=== PATIENT | male | born 1940 | race Caucasian/White ===

== ENCOUNTER → 2022-04-27 08:58 | Outpatient (CLI) | payer MEDICARE, SELFPAY ==
--- NOTE | ~2022-04-27 | MR_ITS ---
EXAMINATION: MR knee RT wo con DATE: 04/27/2022 09:52 INDICATION: Right knee pain TECHNIQUE: Magnetic resonance imaging (MRI) of the right knee was performed without intravenous contr ast. Sequences included coronal PD-weighted FSE, coronal PD-weighted FS FSE, sagittal T2-weighted FS E, sagittal PD-weighted FS FSE and axial PD weighted fat saturated FSE. COMPARISON: None. FINDINGS: Medial compartment: Tear of indeterminate morphology, likely complex with subtle increased signal contacting both the sup erior and inferior articular surface along the inner third of the posterior horn of the medial menisc us and irregular contour along the inner free edge. Partial-thickness chondral ulceration and fissuri ng at the anterior aspect of the medial tibial plateau with prominent underlying subarticular cystlik e and edema-like marrow signal changes. There is partial thickness cartilage loss with some subtle ch ondral surface irregularity at the anterior to central weightbearing medial femoral condyle. Lateral compartment: Lateral meniscus is normal. Small region of chondral fissuring likely involving up to 50% of the cart ilage thickness but without degenerative subchondral changes at the central weightbearing lateral fem oral condyle. Patellofemoral compartment: Partial-thickness chondral ulceration with deep fissuring and underlying mild subarticular cystlike a nd edema-like marrow signal changes at the medial patellar facet and apical ridge. Cartilage at the l ateral patellar facet is normal. Deep chondral ulceration with minimal underlying cortical irregulari ty at the caudal aspect of the trochlear groove and immediately adjacent inferolateral aspect of the medial trochlea. Ligaments and tendons: Anterior and posterior cruciate ligaments are normal. The medial collateral ligament and fibular lou ateral ligament complex are normal. The extensor mechanism is normal. The visualized medial and later al hamstring tendons as well as the iliotibial band are normal. Fluid: Physiologic amount of fluid in the joint space. No loose osteochondral bodies identified. Osseous/other: Bone alignment is normal. No fracture or pathologic marrow replacing process. IMPRESSION: 1. Likely complex tear involving the free edge and inner third of the posterior horn of the medial me niscus. 2. 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 Reviewed, dictated and finalized at location A. IMPRESSION: 1. Likely complex tear involving the free edge and inner third of the posterior horn of the medial meniscus. 2. 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
== END ==
PROVIDERS: PCP Internal Medicine; Visit Provider Nurse Practitioner Family
DX: M17.11 Unilateral primary osteoarthritis, right knee (principal); S83.241A Other tear of medial meniscus, current injury, right knee, initial encounter; X58.XXXA Exposure to other specified factors, initial encounter
CPT/HCPCS: 73721

== ENCOUNTER 2022-07-01 01:36 | Day surgery (SDC) | payer MEDICARE, SELFPAY ==
[2022-05-31 14:14] VITALS: BMI 27.4
[2022-06-16 13:39] VITALS: BMI 27.4
[2022-07-01 08:46] VITALS: BP 175/77; PULSE 57; RESP 20; TEMP 36.1; O2SAT 98; BMI 26.7
--- NOTE | 2022-07-01 09:00 | PM.IMHP ---
H&P: HPI History of Present Illness Date/Time: 07/01/22 09:00 Chief Complaint: neoplasia screening. Narrative: This is an 82-year-old white male patient presents for screening colonoscopy. Patient's current weight appetite bowel movements are normal. He denies abdominal pain. He has had no bleeding. Patient does have a prior history of adenomatous colon polyp. Family history is significant his mother had colon polyps. Patient presents today for neoplasia screening. Review of Systems Review of Systems: Review of systems noncontributory. [facility] Past Medical History Medical History (Updated 07/01/22 @ 09:02 by Harsha Rose MD) COVID-19 Family History Family History Mother Liver disease Grandparent Cardiac arrest Social History Social History Smoking status: Never smoker Second hand tobacco smoke exposure: Yes Alcohol intake: never Substance use: never Substance use type: does not use Living arrangements: with family Spiritual care concerns: No Meds Home Medications and Allergies Home Medications Medication Instructions Recorded Confirmed Type aspirin 325 mg tablet 325 mg PO DAILY 11/06/20 06/16/22 History esomeprazole magnesium 40 mg 40 mg PO DAILY 11/06/20 06/16/22 History capsule,delayed release (Nexium) fluticasone propionate 50 1 spray intranasal DAILY 11/06/20 06/16/22 History mcg/actuation nasal spray,suspension (Flonase Allergy Relief) metoprolol succinate 25 mg 12.5 mg PO DAILY 11/06/20 06/16/22 History tablet,extended release 24 hr multivitamin 1 tablet PO DAILY 11/06/20 06/16/22 History simvastatin 20 mg tablet (Zocor) 20 mg PO DAILY 11/06/20 06/16/22 History cholecalciferol (vitamin D3) 50 50 mcg PO DAILY 05/14/21 06/16/22 History mcg (2,000 unit) tablet mecobalamin (vitamin B12) 1,000 1,000 mcg PO DAILY 05/14/21 06/16/22 History mcg chewable tablet (B12 Active) saw palmetto 160 mg capsule 160 mg PO TID 05/14/21 06/16/22 History peg 3350-electrolytes 236 240 ml PO Q10M #4,000 mL 05/05/22 06/16/22 Rx gram-22.74 gram-6.74 gram-5.86 gram solution (Golytely) biotin 5,000 mcg sublingual tablet 5,000 mcg sublingual DAILY 05/31/22 06/16/22 History coQ10 (ubiquinol) 200 mg capsule 200 mg PO DAILY 05/31/22 06/16/22 History Allergies Allergy/AdvReac Type Severity Reaction Status Date / Time No Known Allergies Allergy Unknown Verified 07/01/22 08:44 Vital Signs Vital Signs - 24 hr 07/01/22 08:46 Temperature 96.9 F L Pulse Rate 57 L Respiratory Rate 20 Blood Pressure 175/77 H Pulse Oximetry 98 Oxygen Delivery Room Air Exam Narrative: Physical exam reveals patient to be alert. Vital signs stable. HEENT exam is unremarkable. Lungs are clear to auscultation and percussion. Heart is without murmur or extra sounds. Abdomen bowel sounds present soft nontender with no organomegaly. Digital external rectal exam is normal. Assessment and Plan Assessment and plan (1) History of colon polyps: Code(s): Z86.010 - Personal history of colonic polyps Status: Acute Assessment and Plan: Patient has a distant history of colon polyps. Family history is significant his mother had colon polyps. Plan is for surveillance colonoscopy now. Further recommendations may be given after endoscopy.
[2022-07-01] MEDS: LACTATED RINGERS 1,000 ML 150 ML IV CONT (09:01)
--- NOTE | 2022-07-01 09:41 | WPDANESEPPF ---
Anes - Initial Pre Proc Eval Procedure: Operation Date: 07/01/22 09:45 Proposed Procedures p Screening Colonoscopy - Harsha Rose MD Date/Time: 07/01/22 09:41 Surgeon: Harsha Rose MD Pre Op Diagnosis: hx colon polyps Patient Data Age: 82 Gender: M Height: 1.73 m Weight: 79.8 kg Last Vital Signs Temp 96.9 F L 07/01/22 08:46 Pulse 57 L 07/01/22 08:46 Resp 20 07/01/22 08:46 BP 175/77 H 07/01/22 08:46 Pulse Ox 98 07/01/22 08:46 O2 Del Method Room Air 07/01/22 08:46 Allergies Allergy/AdvReac Type Severity Reaction Status Date / Time No Known Allergies Allergy Unknown Verified 07/01/22 08:44 Home Medications Medication Instructions Recorded Confirmed Type aspirin 325 mg tablet 325 mg PO DAILY 11/06/20 06/16/22 History esomeprazole magnesium 40 mg 40 mg PO DAILY 11/06/20 06/16/22 History capsule,delayed release (Nexium) fluticasone propionate 50 1 spray intranasal DAILY 11/06/20 06/16/22 History mcg/actuation nasal spray,suspension (Flonase Allergy Relief) metoprolol succinate 25 mg 12.5 mg PO DAILY 11/06/20 06/16/22 History tablet,extended release 24 hr multivitamin 1 tablet PO DAILY 11/06/20 06/16/22 History simvastatin 20 mg tablet (Zocor) 20 mg PO DAILY 11/06/20 06/16/22 History cholecalciferol (vitamin D3) 50 50 mcg PO DAILY 05/14/21 06/16/22 History mcg (2,000 unit) tablet mecobalamin (vitamin B12) 1,000 1,000 mcg PO DAILY 05/14/21 06/16/22 History mcg chewable tablet (B12 Active) saw palmetto 160 mg capsule 160 mg PO TID 05/14/21 06/16/22 History peg 3350-electrolytes 236 240 ml PO Q10M #4,000 mL 05/05/22 06/16/22 Rx gram-22.74 gram-6.74 gram-5.86 gram solution (Golytely) biotin 5,000 mcg sublingual tablet 5,000 mcg sublingual DAILY 05/31/22 06/16/22 History coQ10 (ubiquinol) 200 mg capsule 200 mg PO DAILY 05/31/22 06/16/22 History Patient hx anesthesia problems: none Family hx anesthesia problems: none Results Review: All pre-operative results and documents have been reviewed as part of the pre-operative evaluation. [facility] Past Medical History Medical History (Updated 07/01/22 @ 09:02 by Harsha Rose MD) COVID-19 Family History Family History Mother Liver disease Grandparent Cardiac arrest Social History Social History Smoking status: Never smoker Second hand tobacco smoke exposure: Yes Alcohol intake: never Substance use: never Substance use type: does not use Living arrangements: with family Spiritual care concerns: No Anes - Eval Final PreProcedure Day of Procedure 07/01/22 09:41 Patient weight: normal Heart: regular rate and rhythm Lungs: clear to auscultation Airway: Mallampati scale class II Neurological: alert and oriented Last oral intake: >/= 8 hours ASA classification: III Emergent: no Anesthetic plan: proceed Anesthesia type and monitoring: general GIVS and standard monitoring Results Review: All pre-operative results and documents have been reviewed as part of the pre-operative evaluation. Informed Consent: The patient's anesthetic plan and its attendant risks and benefits were discussed with the patient/family/POA. Questions were solicited and answers provided to the satisfaction of the patient/family/POA.
[2022-07-01 10:03] VITALS: BP 134/73; PULSE 43; RESP 16; O2SAT 100
[2022-07-01 10:13] VITALS: BP 173/92; PULSE 44; RESP 15; O2SAT 100
[2022-07-01 10:23] VITALS: BP 165/84; PULSE 43; RESP 19; O2SAT 99
== END 2022-07-01 10:30 | disposition home or self-care (01) ==
PROVIDERS: PCP Internal Medicine; Visit Provider Internal Medicine Gastroenterology
PROC: 0DJD8ZZ Inspection of Lower Intestinal Tract, Via Natural or Artificial Opening Endoscopic (ICD-10-PCS; CPT 45378; principal; 2022-07-01 09:45)
DX: Z12.11 Encounter for screening for malignant neoplasm of colon (principal); Z83.71 Family history of colonic polyps; K64.8 Other hemorrhoids; K57.30 Diverticulosis of large intestine without perforation or abscess without bleeding; Z79.82 Long term (current) use of aspirin; Z86.16 Personal history of COVID-19
CPT/HCPCS: G0105; J2704; J7120

== ENCOUNTER 2025-03-12 10:40 | Outpatient (CLI) | payer MEDICARE, SELFPAY ==
--- NOTE | ~2025-03-12 | XR_ITS ---
AP, oblique, and lateral views of the right second toe Clinical history: Pain FINDINGS: There is a transverse fracture through the distal portion of the second proximal phalanx, w ith mild displacement dorsally and the lateral views. No other fracture or dislocation seen. Probable generalized osteopenia. IMPRESSION: Acute fracture of the second proximal phalanx, as detailed above. Reviewed, dictated and finalized at location .
--- OUTSIDE RECORDS SUMMARY | 2025-03-12 11:02 | XMS_ITS | Clinical Summary ---
Author Organization [facility] [address] Address [address] [place] [address] Care Team Providers Care Bilingual Medical Receptionist Name Role Phone Shaheed Wright DO Primary Care Provider [phone] Allergies No known active allergies Medications saw palmetto 500 mg capsule take 2 tablets by oral route every day 0 2 Active multivitamin (ONE DAILY) tablet tablet take 1 tablet by oral route every day with food [address] (NexIUM) 40 mg capsule take 1 capsule (40MG) by oral route every day 0 2 Active nitroglycerin (NITROSTAT) 0.[address] 1 tablet (0.4MG) by sublingual route at the 1st sign of attack; may repeat every 5 min until relief; if pain persists after 3 tablets in 15 min, prompt medical attention is recommended 25 1 2 Active coenzyme Q10 (CO Q-10) 200 mg capsule take 1 tablet oral route every day 0 2 Active biotin 2,500 mcg capsule Take by mouth 2 (two) times a day. Active cholecalcifero l (VITAMIN D-3) 2,000 unit tablet daily Active fluticasone propionate (FLONASE) 50 mcg/actuation nasal spray Administer 1 spray into each nostril daily Active cyanocobalamin (Vitamin B-12) 500 mcg tabletIndicati ons:Prevention of Vitamin B12 Deficiency Take 1 tablet (500 mcg total) by mouth daily Active hydrocortisone 2.5 % cream hydrocortisone 2.5 % topical cream APPLY TO INVOLVED AREAS BID - RUB IN WELL DIRECTED Active aspirin 81 mg enteric coated tablet Take 1 tablet (81 mg total) by mouth daily 30 tablet 11 3 Active simvastatin (ZOCOR) 20 mg tablet TAKE 1 TABLET(20 MG) BY MOUTH EVERY NIGHT 90 tablet 3 4 Active peppermint oiL (IBgard) 90 mg capsule,delaye d,extend.relea se 4 Active Active Problems Problem Noted Date Diagnosed Date Other chest pain 07/13/2022 Coronary artery disease invo lving ruby coronary artery of ruby heart without angina pectoris 01/26/2018 History of coronary artery stent placement 01/26 Encounters Date Type Department Care Team Description 02/05/2025 9:30 AM CDT Office Visit [facility] Cardiology [address] [facility] [address] [place] [address] Mehdi Marcos MD History of coronary artery stent placement (Primary Dx); Coronary artery disease involving ruby coronary artery of ruby heart without angina pectoris from Last 3 Months Surgical History Surgery Date Site/Laterality Comments ANGIOPLASTY 10/10/2002 - 10/09/2003 CARDIAC CATHETERIZATION CORONARY ANGIOPLASTY SPHENOIDECTOMY 05/06/1992 CARDIAC SURGERY Medical History Medical History Date Comments GERD (gastroesophageal reflux disease) 2002 Heart disease 2002 Heart attack (HCC) Gastric reflux Family History Medical History Relation Name Comments Heart attack Maternal Grandfather Fernanda Hampton Myocard ial Infarction; Cause of : Myocardial Infarction Liver disease Mother Heart disease Other Relation Name Status Comments Maternal Grandfather Fernanda Hampton (Age 69) Mother (Age 79) Other Social History Tobacco Use Types Packs/Day Years Used Date Smoking Tobacco: Never Cigarettes Smokeless Tobacco: Never Tobacco Cessation:Counseling Given: Not Answered Alcohol Use Standard Drinks/Week Comments No 0 (1 standard drink = 0.6 oz pur e alcohol) Sex and Gender Information Value Date Recorded Sex Assigned at Not on file Legal Sex 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 Gender Identity Not on file Sexual Orientation Straight 01/27/2021 11 :47 AM CDT 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 Not on file Not on file Obstetrics History Last Filed Vital Signs Vital Sign Reading Time Taken Comments Blood Pressure 104/58 02/05/2025 9:37 AM CDT Pulse 50 02/05/2025 9:37 AM CDT Temperature - - Respiratory Rate - - Oxygen Saturation 97% 02/05/2025 9:37 AM CDT Inhaled Oxygen Concentration - - Weight 72.6 kg (160 lb) 02/05/2025 9:37 AM CDT Height 172.7 cm (5' 8) 02/05/2025 9:37 AM CDT Body Mass Index 24.33 02/05/2025 9:37 AM CDT Plan of Treatment Health Maintenance Due Date Last Done Comments Depression Screening 1942 Hepatitis B Screening 01/09/1960 Pneumococcal vaccine 65+ (1 of 1 - PCV) 01/09/1992 Zoster Vaccine (1 of 2) 01/09/1992 Well Visit 65+ 2007 Fall Risk Assessment 01/30/2021 01/31/2020 Influenza Vaccine (Season Ended) 2025 08/17/20 19 DTaP/Tdap/Td Vaccine (2 - Td or Tdap) 04/12/202801/2018 Insurance MEDICARE [facility] MEDICARE [facility] Care Teams Bilingual Medical Receptionist Relationship Specialty Start Date End Date Shaheed Wright DO [address] [facility] [address] [place] [address] PCP - General Internal Medicine 08/02/24
--- OUTSIDE RECORDS SUMMARY | 2025-03-12 11:02 | XMS_ITS | Referral Summary ---
Author Organization [facility] [place] [address] [facility] [address] Address [address] [place] [address] Care Team Providers Care Jewelry Casting Model Maker Apprentice Name Role Phone Shaheed Wright DO Primary Care Provider [phone] Encounters Date Type Department Care Team Description 02/05/2025 9:30 AM CDT Office Visit [facility] Cardiology [address] [facility] [address] [place] [address] Mehdi Marcos MD History of coronary artery stent placement (Primary Dx); Coronary artery disease involving [place] coronary artery of [place] heart without angina pectoris from Last 3 Months Allergies No known active allergies Medications saw [...] min, prompt medical attention is recommended 25 2 Active coenzyme Q10 (CO Q-10) 200 [...] pain 07/13/2022 Coronary artery disease invo lving [place] coronary artery of [place] heart without angina pectoris 01/26/2018 History of coronary artery stent placement 01/26 Social History Tobacco Use Types Packs/Day Years Used Date Smoking Tobacco: Never Cigarettes Smokeless Tobacco: Never Tobacco Cessation:Counseling Given: Not Answered Alcohol Use Standard Drinks/Week Comments No 0 (1 standard drink = 0.6 oz pur e alcohol) Sex and Gender Information Value Date Recorded Sex Assigned at Not on file Legal Sex 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
== END 2025-03-12 10:41 | disposition home or self-care (01) ==
PROVIDERS: PCP Nurse Practitioner; Visit Provider Nurse Practitioner
DX: S92.511A Displaced fracture of proximal phalanx of right lesser toe(s), initial encounter for closed fracture (principal); X58.XXXA Exposure to other specified factors, initial encounter
CPT/HCPCS: 73660